=== PATIENT | male | born 1935 | race Caucasian/White ===

== ENCOUNTER 2017-11-05 14:09 | Emergency (ER) | payer MEDICARE ==
[2017-11-05] MEDS ORDERED: TETANUS/DIPHTHERIA TOXOID [ADULT] 0.5 ML VIAL IM ONE (15:28)
== END 2017-11-05 16:05 | disposition home or self-care (01) ==
LOC: EDH 14:09
DX: S51.011A Laceration without foreign body of right elbow, initial encounter (principal); I10 Essential (primary) hypertension; E78.5 Hyperlipidemia, unspecified; Z98.890 Other specified postprocedural states; X58.XXXA Exposure to other specified factors, initial encounter; Y93.89 Activity, other specified; Y92.096 Garden or yard of other non-institutional residence as the place of occurrence of the external cause; Y99.8 Other external cause status
CPT/HCPCS: 12031; 73080; 90471; 90714

== ENCOUNTER 2017-11-13 16:51 | Emergency (ER) | payer MEDICARE ==
[2017-11-13] MEDS ORDERED: OXYMETAZOLINE HCL SPRAY 15 ML BOTTLE ONE (18:09)
== END 2017-11-13 18:42 | disposition home or self-care (01) ==
LOC: EDH 16:51
DX: S00.33XA Contusion of nose, initial encounter (principal); R04.0 Epistaxis; E78.5 Hyperlipidemia, unspecified; I10 Essential (primary) hypertension; W22.8XXA Striking against or struck by other objects, initial encounter; Y93.89 Activity, other specified; Y92.89 Other specified places as the place of occurrence of the external cause; Y99.8 Other external cause status
CPT/HCPCS: 70160

== ENCOUNTER → 2017-12-28 | Outpatient (CLI) | payer MEDICARE | END | disposition home or self-care (01) | LOC: RAH 13:11 | PROVIDERS: ATTEND Family Medicine | DX: M25.521 Pain in right elbow (principal) | CPT/HCPCS: 73070 ==

== ENCOUNTER → 2018-04-19 | Outpatient (CLI) | payer MEDICARE | END | disposition home or self-care (01) | LOC: SHCH 12:50 | PROVIDERS: ATTEND Internal Medicine Cardiovascular Disease | DX: I65.23 Occlusion and stenosis of bilateral carotid arteries (principal); I10 Essential (primary) hypertension; E78.5 Hyperlipidemia, unspecified | CPT/HCPCS: 93880 ==

== ENCOUNTER → 2019-08-21 | Outpatient (CLI) | payer MEDICARE | END | disposition home or self-care (01) | LOC: SLP 20:04 | PROVIDERS: ATTEND Internal Medicine Cardiovascular Disease | DX: G47.33 Obstructive sleep apnea (adult) (pediatric) (principal); I10 Essential (primary) hypertension; I25.10 Atherosclerotic heart disease of native coronary artery without angina pectoris | CPT/HCPCS: 95810 ==

== ENCOUNTER → 2019-10-15 | Outpatient (CLI) | payer MEDICARE | END | disposition home or self-care (01) | LOC: SHCH 12:51 | PROVIDERS: ATTEND Internal Medicine Cardiovascular Disease | DX: I10 Essential (primary) hypertension (principal); R60.9 Edema, unspecified | CPT/HCPCS: 93306; 93970 ==

== ENCOUNTER → 2019-11-29 | Outpatient (CLI) | payer MEDICARE ==
[~2019-11-29] MED LIST: REGADENOSON 0.4 MG/5 ML PF SYG IVP SCH
== END | disposition home or self-care (01) ==
LOC: SHCH 07:45
PROVIDERS: ATTEND Internal Medicine Cardiovascular Disease
DX: I10 Essential (primary) hypertension (principal); I25.10 Atherosclerotic heart disease of native coronary artery without angina pectoris
CPT/HCPCS: 78452; 93017; 96374; A9500 ×2; J2785

== ENCOUNTER 2019-12-31 08:08 | Day surgery (SDC) | payer MEDICARE ==
[2019-12-27 13:50] LABS: BASOPHILS % (AUTO) 0.3 % (0.0-5.0); LYMPHOCYTES % (AUTO) 17.9 % (21.0-51.0); MEAN CORPUSCULAR HEMOGLOBIN 30.6 pg (27.0-33.0); MEAN CORPUSCULAR HGB CONC 31.9 g/dL (32.0-36.0); MEAN CORPUSCULAR VOLUME 95.9 fL (79-99); MONOCYTES % (AUTO) 11.6 % (3.0-13.0); PLATELET COUNT (AUTO) 162 K/uL (130-400); WHITE BLOOD COUNT (AUTO) 6.3 K/uL (4.8-10.8)
[2019-12-27 13:53] LABS: APPEARANCE,URINE Clear (CLEAR); BILIRUBIN,URINE Negative (NEGATIVE); COLOR,URINE Yellow (YELLOW); GLUCOSE, URINE (UA) Negative (NEGATIVE); KETONES,URINE Negative (NEGATIVE); LEUKOCYTE ESTERASE ,URINE Negative (NEGATIVE); NITRATE,URINE Negative (NEGATIVE); OCCULT BLOOD,URINE Negative (NEGATIVE); PH,URINE 5.5 (5.0-8.0); PROTEIN,URINE Negative (NEGATIVE)
[2019-12-27 14:07] LABS: INR 0.96 (0.85-1.15); PARTIAL THROMBOPLASTIN TIME 34.7 SEC (26.3-35.5); PROTHROMBIN TIME 10.4 SEC (9.6-11.6)
[2019-12-27 14:08] LABS: POTASSIUM 4.5 mmol/L (3.5-5.1)
[2019-12-30 11:26] VITALS: BP 163/85
[2019-12-31] VITALS (10 sets, daily range): BP systolic 129–157; BP diastolic 65–83
[~2019-12-31] VITALS: Ht 182.9 cm; Wt 110.0 kg
[2019-12-31] MEDS ORDERED: SIMV-46 PO (09:40)
[2019-12-31] MEDS ORDERED: MULT-1367 PO (09:43)
[2019-12-31] MEDS ORDERED: ASPI-556 PO (09:43)
[2019-12-31] MEDS ORDERED: METO25TA6 PO (09:43)
[2019-12-31] MEDS ORDERED: TAMS-1 PO (09:43)
[2019-12-31] MEDS ORDERED: SODIUM CHLORIDE 0.9% 1000ML 1,000 ML IV ONE (10:21)
[2019-12-31] MEDS ORDERED: IOHEXOL-350 50ML VIAL IV ONE (11:02)
[2019-12-31] MEDS ORDERED: NITROGLYCERIN 2 MG/VIAL VIAL IV ONE (11:02)
[2019-12-31] MEDS ORDERED: IOHEXOL 350 MG/ML 100ML INFUS..BTL IV ONE (11:02)
[2019-12-31] MEDS ORDERED: SODIUM BICARB 50MEQ 50ML VIAL ONE (11:02)
[2019-12-31] MEDS ORDERED: MEPERIDINE-PF 25 MG/ML SYG ONE ×2 (11:02→11:47)
[2019-12-31] MEDS ORDERED: HEPARIN SODIUM 1000UNIT/ML 10ML VIAL ONE (11:02)
[2019-12-31] MEDS ORDERED: MIDAZOLAM HCL 1 MG/ML 2ML VIAL ONE ×2 (11:03→11:47)
[2019-12-31] MEDS ORDERED: LIDOCAINE HCL 2% 20ML ONE (11:03)
[2019-12-31] MEDS ORDERED: SODIUM CHLORIDE 0.9% 1000ML 1,000 ML IV SCH (12:10)
--- NOTE | 2019-12-31 14:00 | NUR ---
Pt's spouse called and discharge instructions explained including routine and emergency care of cath site.
--- NOTE | 2019-12-31 15:10 | NUR ---
Discharge instructions provided to pt. Patient instructed in routine and emergency care of cath site. Pt reminded to leave dressing on for 24 hours, keeping it dry, clean, and intact. Pt also instructed to not lift anything over 5 lbs for 5 days. Pt verbalized understanding. Pt reports no further questions at this time.
--- NOTE | 2019-12-31 16:35 | NUR ---
Pt discharged home, and family member picked him up at exit, tolerating solids/liquids, ambulating well. Denies any dizziness, nausea, or pain. Site to right groin remains soft and non-tender, dressing dry, clean and intact. Pt reminded to leave the dressing dry, clean, and intact for 24 hours and not to lift anything over 5 lbs for 5 days.
== END 2019-12-31 16:35 | disposition home or self-care (01) ==
LOC: DAH 08:08
PROVIDERS: ATTEND Internal Medicine Cardiovascular Disease
DX: I25.10 Atherosclerotic heart disease of native coronary artery without angina pectoris (principal); I10 Essential (primary) hypertension; E78.5 Hyperlipidemia, unspecified; G47.33 Obstructive sleep apnea (adult) (pediatric); Z79.82 Long term (current) use of aspirin; Z79.899 Other long term (current) drug therapy; Z98.890 Other specified postprocedural states; Z79.01 Long term (current) use of anticoagulants
CPT/HCPCS: 36415; 71045; 80048; 81003; 85025; 85610; 85730; 93005; 93459; A4215; A4216; A4221; A4222; A4223 ×3; A4606; A4663; C1760; C1894; J1644; J2175 ×2; J2250 ×2; J3490 ×3; J7030; Q9965; Q9967 ×2; 99156; 99157

== ENCOUNTER 2021-06-04 06:44 | Day surgery (SDC) | payer MEDICARE ==
[2021-06-02 15:26] LABS: BASOPHILS % (AUTO) 0.4 % (0.0-5.0); EOSINOPHILS % (AUTO) 4.1 % (0.0-8.0); HEMATOCRIT 47.7 % (42-54); LYMPHOCYTES % (AUTO) 18.7 % (21.0-51.0); MEAN CORPUSCULAR HGB CONC 32.1 g/dL (32.0-36.0); MEAN CORPUSCULAR VOLUME 96.6 fL (79-99); MONOCYTES % (AUTO) 11.1 % (3.0-13.0); NEUTROPHILS % (AUTO) 65.3 % (40.0-77.0); PLATELET COUNT (AUTO) 152 K/uL (130-400); RED BLOOD CELL COUNT(AUTO) 4.94 MIL/uL (4.50-6.20); RED CELL DISTRIBUTION WIDTH 13.2 % (11.0-15.5); WHITE BLOOD COUNT (AUTO) 5.4 K/uL (4.8-10.8)
[2021-06-02 15:39] LABS: POTASSIUM 4.5 mmol/L (3.5-5.1)
[2021-06-02 15:42] LABS: INR 1.03 (0.85-1.15); PROTHROMBIN TIME 11.2 SEC (9.6-11.6)
[2021-06-02 15:43] LABS: PARTIAL THROMBOPLASTIN TIME 32.1 SEC (26.3-35.5)
[2021-06-03 11:57] VITALS: BP 169/89
[2021-06-04] VITALS (11 sets, daily range): BP systolic 111–159; BP diastolic 68–90
[~2021-06-04] VITALS: Ht 182.9 cm; Wt 108.5 kg
[~2021-06-04 06:44] MED LIST changes: +ASPI-556 PO; +METO25TA6 PO; +MULT-1367 PO; -REGADENOSON 0.4 MG/5 ML PF SYG IVP SCH; +SIMV-46 PO; +TAMS-1 PO
[2021-06-04] MEDS ORDERED: CEFAZOLIN SODIUM 1 GM VIAL ONE (07:57)
[2021-06-04] MEDS ORDERED: BUPIVACAINE/PF 0.25% 30ML VIAL IJ ONE (07:57)
[2021-06-04] MEDS ORDERED: MIDAZOLAM HCL 1 MG/ML 2ML VIAL ONE ×4 (07:58→09:56)
[2021-06-04] MEDS ORDERED: MEPERIDINE-PF 25 MG/ML SYG ONE ×4 (07:58→09:57)
[2021-06-04] MEDS ORDERED: LIDOCAINE HCL 1% MDV 50ML VIAL ONE (07:58)
[2021-06-04] MEDS ORDERED: IODIXANOL 320 MG/ML 100 ML VIAL ONE (07:58)
[2021-06-04] MEDS ORDERED: 0.9%NACL 1000ML 1,000 ML IV SCH (08:00)
[2021-06-04] MEDS ORDERED: CEFAZOLIN SODIUM 1 GM VIAL IVP SCH (16:00)
== END 2021-06-04 17:00 | disposition home or self-care (01) ==
LOC: DAH 06:44
PROVIDERS: ATTEND Internal Medicine Cardiovascular Disease
DX: I45.10 Unspecified right bundle-branch block (principal); I49.5 Sick sinus syndrome; I44.0 Atrioventricular block, first degree; I49.1 Atrial premature depolarization; I25.5 Ischemic cardiomyopathy; I49.3 Ventricular premature depolarization; I25.10 Atherosclerotic heart disease of native coronary artery without angina pectoris; G47.33 Obstructive sleep apnea (adult) (pediatric); Z79.01 Long term (current) use of anticoagulants; Z79.82 Long term (current) use of aspirin; Z79.899 Other long term (current) drug therapy
CPT/HCPCS: 33208; 33225; 36415; 71045; 80048; 85025; 85610; 85730; 93005; A4215; A4216; A4221; A4222; A4223 ×3; A4606; A4663; C1769 ×3; C1894; C1898 ×2; C1900; C2621; J0690 ×2; J2175 ×4; J2250 ×4; J3490 ×2; J7030; Q9967; 99156; 99157

== ENCOUNTER 2021-06-25 19:04 | Emergency (ER) | payer MEDICARE ==
[~2021-06-25] VITALS: Ht 185.4 cm; Wt 108.0 kg
[2021-06-25] MEDS ORDERED: ONDANSETRON 4MG INJ IVP ONE (19:30)
[2021-06-25] MEDS ORDERED: KETOROLAC 15MG/ML VIAL (15MG/ML) IV ONE (19:30)
[2021-06-25 19:35] LABS: BASOPHILS % (AUTO) 0.2 % (0.0-5.0); EOSINOPHILS % (AUTO) 1.5 % (0.0-8.0); HEMATOCRIT 46.4 % (42-54); LYMPHOCYTES % (AUTO) 5.7 % (21.0-51.0); MEAN CORPUSCULAR HEMOGLOBIN 30.9 pg (27.0-33.0); MEAN CORPUSCULAR HGB CONC 32.5 g/dL (32.0-36.0); MEAN CORPUSCULAR VOLUME 94.9 fL (79-99); MONOCYTES % (AUTO) 8.4 % (3.0-13.0); PLATELET COUNT (AUTO) 166 K/uL (130-400); RED BLOOD CELL COUNT(AUTO) 4.89 MIL/uL (4.50-6.20); RED CELL DISTRIBUTION WIDTH 13.1 % (11.0-15.5); WHITE BLOOD COUNT (AUTO) 9.8 K/uL (4.8-10.8)
[2021-06-25] MEDS ORDERED: KETOROLAC 30MG VIAL (30MG/ML) ONE (19:36)
[2021-06-25 19:38] LABS: APPEARANCE,URINE Clear (CLEAR); BILIRUBIN,URINE Negative (NEGATIVE); COLOR,URINE Yellow (YELLOW); GLUCOSE, URINE (UA) Negative (NEGATIVE); KETONES,URINE Negative (NEGATIVE); LEUKOCYTE ESTERASE ,URINE Negative (NEGATIVE); NITRATE,URINE Negative (NEGATIVE); OCCULT BLOOD,URINE Negative (NEGATIVE); PROTEIN,URINE Negative (NEGATIVE); UROBILINOGEN,URINE 0.2 mg/dL (0.2-1.0)
[2021-06-25 19:49] LABS: CREATININE 1.3 mg/dL (0.5-1.5); POTASSIUM 3.7 mmol/L (3.5-5.1)
[2021-06-25 19:53] LABS: BILIRUBIN,TOTAL 1.1 mg/dL (0.2-1.0); TOTAL PROTEIN, SERUM 7.4 g/dL (6.0-8.3)
[2021-06-25] MEDS ORDERED: 0.9%NACL 1000ML 1,000 ML IV ONE (20:00)
[2021-06-25] MEDS ORDERED: IOHEXOL-350 75 ML VIAL IV ONE (20:03)
[2021-06-25] MEDS ORDERED: TAMSULOSIN HCL 0.4 MG CAP.ER.24H PO SCH (21:00)
[2021-06-25 22:03] VITALS: BP 158/80
== END 2021-06-25 22:05 | disposition home or self-care (01) ==
LOC: EDH 19:04
DX: R33.9 Retention of urine, unspecified (principal); R11.2 Nausea with vomiting, unspecified; E78.00 Pure hypercholesterolemia, unspecified; I10 Essential (primary) hypertension; Z79.1 Long term (current) use of non-steroidal anti-inflammatories (NSAID); Z79.82 Long term (current) use of aspirin; Z79.899 Other long term (current) drug therapy; Z95.0 Presence of cardiac pacemaker
CPT/HCPCS: 36415; 74177; 80053; 81003; 83690; 84484; 85025; 93005; 96361; 96374; 96375; 99285; J1885; J2405; J7030; Q9967

== ENCOUNTER → 2021-06-30 | Outpatient (CLI) | payer MEDICARE ==
[2021-06-30 14:08] LABS: CREATININE 2.3 mg/dL (0.5-1.5); POTASSIUM 4.3 mmol/L (3.5-5.1)
[2021-06-30 14:12] LABS: BASOPHILS % (AUTO) 0.2 % (0.0-5.0); EOSINOPHILS % (AUTO) 1.5 % (0.0-8.0); HEMATOCRIT 43.5 % (42-54); LYMPHOCYTES % (AUTO) 8.4 % (21.0-51.0); MEAN CORPUSCULAR HEMOGLOBIN 30.1 pg (27.0-33.0); MEAN CORPUSCULAR HGB CONC 31.7 g/dL (32.0-36.0); MONOCYTES % (AUTO) 12.6 % (3.0-13.0); NEUTROPHILS % (AUTO) 76.9 % (40.0-77.0); PLATELET COUNT (AUTO) 161 K/uL (130-400); RED BLOOD CELL COUNT(AUTO) 4.58 MIL/uL (4.50-6.20); RED CELL DISTRIBUTION WIDTH 12.9 % (11.0-15.5); WHITE BLOOD COUNT (AUTO) 8.2 K/uL (4.8-10.8)
== END | disposition home or self-care (01) ==
LOC: LAB 13:38
PROVIDERS: ATTEND Urology
DX: R33.8 Other retention of urine (principal)
CPT/HCPCS: 36415; 80048; 85025

== ENCOUNTER → 2021-07-08 | Outpatient (CLI) | payer MEDICARE ==
[~2021-07-08] MED LIST changes: +IOHEXOL-350 75 ML VIAL IV ONE
== END | disposition home or self-care (01) ==
LOC: RAH 07:47
PROVIDERS: ATTEND Urology
DX: K80.20 Calculus of gallbladder without cholecystitis without obstruction (principal); K76.0 Fatty (change of) liver, not elsewhere classified; K44.9 Diaphragmatic hernia without obstruction or gangrene; R16.0 Hepatomegaly, not elsewhere classified; K57.30 Diverticulosis of large intestine without perforation or abscess without bleeding; N40.1 Benign prostatic hyperplasia with lower urinary tract symptoms; I70.8 Atherosclerosis of other arteries; K40.20 Bilateral inguinal hernia, without obstruction or gangrene, not specified as recurrent; N32.89 Other specified disorders of bladder; R33.8 Other retention of urine
CPT/HCPCS: 74178; Q9967

== ENCOUNTER 2021-07-14 06:08 | Day surgery (SDC) | payer MEDICARE ==
[2021-07-13 09:22] LABS: BASOPHILS % (AUTO) 0.5 % (0.0-5.0); EOSINOPHILS % (AUTO) 5.2 % (0.0-8.0); HEMATOCRIT 44.5 % (42-54); LYMPHOCYTES % (AUTO) 14.5 % (21.0-51.0); MEAN CORPUSCULAR HEMOGLOBIN 30.2 pg (27.0-33.0); MEAN CORPUSCULAR HGB CONC 32.1 g/dL (32.0-36.0); MEAN CORPUSCULAR VOLUME 94.1 fL (79-99); MONOCYTES % (AUTO) 9.8 % (3.0-13.0); NEUTROPHILS % (AUTO) 69.5 % (40.0-77.0); PLATELET COUNT (AUTO) 161 K/uL (130-400); RED BLOOD CELL COUNT(AUTO) 4.73 MIL/uL (4.50-6.20); RED CELL DISTRIBUTION WIDTH 12.6 % (11.0-15.5); WHITE BLOOD COUNT (AUTO) 6.6 K/uL (4.8-10.8)
[2021-07-13 09:28] LABS: POTASSIUM 4.2 mmol/L (3.5-5.1)
[2021-07-13 09:32] LABS: INR 1.09 (0.85-1.15); PROTHROMBIN TIME 11.8 SEC (9.6-11.6)
[2021-07-13 09:34] LABS: PARTIAL THROMBOPLASTIN TIME 32.2 SEC (26.3-35.5)
[~2021-07-14] VITALS: Ht 185.4 cm; Wt 105.9 kg
[2021-07-14] VITALS (9 sets, daily range): BP systolic 106–140; BP diastolic 51–88
[~2021-07-14 06:08] MED LIST changes: -IOHEXOL-350 75 ML VIAL IV ONE
[2021-07-14] MEDS ORDERED: 0.9%NACL 1000ML 1,000 ML IV ONE (06:19)
[2021-07-14] MEDS ORDERED: CEFAZOLIN SODIUM 1 GM VIAL ONE (07:08)
[2021-07-14] MEDS ORDERED: BUPIVACAINE/PF 0.25% 30ML VIAL IJ ONE (07:08)
[2021-07-14] MEDS ORDERED: LIDOCAINE HCL 1% MDV 50ML VIAL ONE (07:09)
[2021-07-14] MEDS ORDERED: MIDAZOLAM HCL 1 MG/ML 2ML VIAL ONE ×3 (07:29→09:58)
[2021-07-14] MEDS ORDERED: IODIXANOL 320 MG/ML 100 ML VIAL ONE (07:29)
[2021-07-14] MEDS ORDERED: MEPERIDINE-PF 25 MG/ML SYG ONE ×3 (07:29→09:58)
[2021-07-14] MEDS ORDERED: TRAM50TA4 PO (11:16)
[2021-07-14] MEDS ORDERED: DOXY100C5 PO (11:16)
[2021-07-14] MEDS ORDERED: ACET325C6 PO (11:26)
[2021-07-14] MEDS ORDERED: ACETAMINOPHEN WITH CODEINE 1 TAB TAB PO PRN (11:30)
== END 2021-07-14 14:30 | disposition home or self-care (01) ==
LOC: DAH 06:08
PROVIDERS: ATTEND Internal Medicine Cardiovascular Disease
DX: T82.190A Other mechanical complication of cardiac electrode, initial encounter (principal); I50.22 Chronic systolic (congestive) heart failure; Z95.1 Presence of aortocoronary bypass graft; Y82.8 Other medical devices associated with adverse incidents; Z79.899 Other long term (current) drug therapy
CPT/HCPCS: 33215; 33224; 33234; 36415; 71045; 80048; 85025; 85610; 85730; 93005; A4215; A4216; A4221; A4222; A4223 ×3; A4606; A4663; C1769 ×2; C1900; J0690; J2175 ×3; J2250 ×3; J3490 ×2; J7030; Q9967; 99156; 99157

== ENCOUNTER 2022-05-06 11:12 | Emergency (ER) | payer MEDICARE ==
[~2022-05-06] VITALS: Ht 185.4 cm; Wt 108.0 kg
[~2022-05-06 11:12] MED LIST changes: +DOXY100C5 PO; +TRAM50TA4 PO
[2022-05-06 12:03] LABS: BASOPHILS % (AUTO) 0.2 % (0.0-5.0); EOSINOPHILS % (AUTO) 0.4 % (0.0-8.0); HEMATOCRIT 40.2 % (42-54); LYMPHOCYTES % (AUTO) 8.4 % (21.0-51.0); MEAN CORPUSCULAR HEMOGLOBIN 30.8 pg (27.0-33.0); MEAN CORPUSCULAR HGB CONC 33.1 g/dL (32.0-36.0); MEAN CORPUSCULAR VOLUME 93.1 fL (79-99); MONOCYTES % (AUTO) 16.4 % (3.0-13.0); NEUTROPHILS % (AUTO) 74.2 % (40.0-77.0); PLATELET COUNT (AUTO) 111 K/uL (130-400); RED BLOOD CELL COUNT(AUTO) 4.32 MIL/uL (4.50-6.20); RED CELL DISTRIBUTION WIDTH 13.7 % (11.0-15.5); WHITE BLOOD COUNT (AUTO) 5.4 K/uL (4.8-10.8)
[2022-05-06 12:24] LABS: CREATININE 1.2 mg/dL (0.5-1.5); POTASSIUM 3.9 mmol/L (3.5-5.1)
[2022-05-06 12:26] LABS: ALBUMIN 3.3 g/dL (3.5-5.0)
[2022-05-06] MEDS: 0.9%NACL 1000ML 1,000 ML IV ONE (12:45)
[2022-05-06] MEDS: OSELTAMIVIR PHOSPHATE 75 MG CAP ONE (12:49)
[2022-05-06] MEDS: OSELTAMIVIR PHOSPHATE 75 MG CAP PO SCH (13:00)
[2022-05-06 14:16] VITALS: BP 138/89
[2022-05-06] MEDS ORDERED: CEPH500B PO (15:46)
== END 2022-05-06 15:59 | disposition home or self-care (01) ==
LOC: EDH 11:12
DX: S80.211A Abrasion, right knee, initial encounter (principal); R42 Dizziness and giddiness; Z20.822 Contact with and (suspected) exposure to COVID-19; E78.00 Pure hypercholesterolemia, unspecified; I10 Essential (primary) hypertension; Z79.82 Long term (current) use of aspirin; W18.39XA Other fall on same level, initial encounter; Y93.89 Activity, other specified; Y92.89 Other specified places as the place of occurrence of the external cause; Y99.8 Other external cause status
CPT/HCPCS: 99284; 87635; 80053; 85025; 87804 ×2; 36415; 93005; C9803

== ENCOUNTER → 2022-08-20 | Outpatient (CLI) | payer MEDICARE ==
[~2022-08-20] MED LIST changes: +CEPH500B PO
== END | disposition home or self-care (01) ==
LOC: SHCH 08:43
PROVIDERS: ATTEND Internal Medicine Cardiovascular Disease
DX: I65.21 Occlusion and stenosis of right carotid artery (principal); Z98.890 Other specified postprocedural states
CPT/HCPCS: 93880

== ENCOUNTER → 2023-07-14 | Outpatient (CLI) | payer MEDICARE ==
[~2023-07-14] MED LIST changes: +REGADENOSON 0.4 MG/5 ML PF SYG IVP ONE
== END | disposition home or self-care (01) ==
LOC: SHCH 08:44
PROVIDERS: ATTEND Internal Medicine Cardiovascular Disease
DX: I25.10 Atherosclerotic heart disease of native coronary artery without angina pectoris (principal)
CPT/HCPCS: 78452; 96374; 93017; J2785; A9500 ×2

== ENCOUNTER → 2023-08-14 | Outpatient (CLI) | payer MEDICARE ==
[~2023-08-14] MED LIST changes: -REGADENOSON 0.4 MG/5 ML PF SYG IVP ONE
== END | disposition home or self-care (01) ==
LOC: SHCH 10:11
PROVIDERS: ATTEND Internal Medicine Cardiovascular Disease
DX: I34.81 Nonrheumatic mitral (valve) annulus calcification (principal); R07.9 Chest pain, unspecified; I10 Essential (primary) hypertension; E78.5 Hyperlipidemia, unspecified
CPT/HCPCS: 93306

== ENCOUNTER 2023-10-31 07:02 | Day surgery (SDC) | payer MEDICARE ==
[2023-10-27 13:55] LABS: BASOPHILS # (AUTO) 0.03 K/uL (0.00-0.20); BASOPHILS % (AUTO) 0.4 % (0.0-5.0); EOSINOPHILS # (AUTO) 0.22 K/uL (0.00-0.70); EOSINOPHILS % (AUTO) 3.3 % (0.0-8.0); HEMATOCRIT 49.8 % (42-54); IMMATURE GRANULOCYTE ABSOLUTE 0.02 K/uL (0-1); LYMPHOCYTES % (AUTO) 14.9 % (21.0-51.0); MEAN CORPUSCULAR HEMOGLOBIN 31.3 pg (27.0-33.0); MEAN CORPUSCULAR HGB CONC 32.3 g/dL (32.0-36.0); MEAN CORPUSCULAR VOLUME 96.9 fL (79-99); MONOCYTES # (AUTO) 0.7 K/uL (0.1-1.0); MONOCYTES % (AUTO) 9.9 % (3.0-13.0); NEUTROPHILS # (AUTO) 4.8 K/uL (1.8-7.7); NEUTROPHILS % (AUTO) 71.2 % (40.0-77.0); PLATELET COUNT (AUTO) 147 K/uL (130-400); RED BLOOD CELL COUNT(AUTO) 5.14 MIL/uL (4.50-6.20); RED CELL DISTRIBUTION WIDTH 13.2 % (11.0-15.5); WHITE BLOOD COUNT (AUTO) 6.8 K/uL (4.8-10.8)
[2023-10-27 14:01] LABS: POTASSIUM 4.6 mmol/L (3.5-5.1)
[2023-10-27 14:14] LABS: INR 0.96 (0.85-1.15); PROTHROMBIN TIME 11.4 SEC (9.6-11.6)
[2023-10-27 14:15] LABS: B-TYPE NATRIURETIC PEPTIDE 183 pg/mL (0-100)
[2023-10-27 14:16] LABS: PARTIAL THROMBOPLASTIN TIME 31.5 SEC (26.3-35.5)
[2023-10-27 14:30] VITALS: BP 153/88; PULSE 91; RESP 15
[2023-10-27 14:37] LABS: ADD UA MICROSCOPIC YES; APPEARANCE,URINE CLEAR (CLEAR); BILIRUBIN,URINE NEGATIVE (NEGATIVE); COLOR,URINE YELLOW (YELLOW); GLUCOSE, URINE (UA) NEGATIVE (NEGATIVE); KETONES,URINE NEGATIVE (NEGATIVE); LEUKOCYTE ESTERASE ,URINE NEGATIVE Leu/uL (NEGATIVE); NITRATE,URINE NEGATIVE (NEGATIVE); OCCULT BLOOD,URINE NEGATIVE (NEGATIVE); PROTEIN,URINE 20 mg/dL (NEGATIVE); UROBILINOGEN,URINE 0.2 mg/dL (0.2-1.0)
[2023-10-27 14:40] LABS: MUCUS,URINE RARE LPF (None Seen); RBC,URINE 0-1 /HPF (0-1); SQUAMOUS EPITHELIAL CELL,UR RARE /HPF (0-2); WBC,URINE 0-1 /HPF (0-1)
[~2023-10-31] VITALS: Ht 182.9 cm; Wt 112.4 kg
[2023-10-31] VITALS (11 sets, daily range): BP systolic 112–166; BP diastolic 66–88; PULSE 60–91; RESP 12–20
[~2023-10-31 07:02] MED LIST changes: -CEPH500B PO; -DOXY100C5 PO; -TRAM50TA4 PO
[2023-10-31] MEDS: 0.9%NACL 1000ML 1,000 ML IV ONE (07:41)
[2023-10-31] MEDS ORDERED: LIDOCAINE HCL 400MG/20ML VIAL ONE (08:32)
[2023-10-31] MEDS ORDERED: MEPERIDINE-PF 25 MG/ML SYG ONE (08:32)
[2023-10-31] MEDS ORDERED: SODIUM BICARB 50MEQ 50ML VIAL 50 ML ONE (08:32)
[2023-10-31] MEDS ORDERED: NICARDIPINE 25MG INJ IV ONE (08:33)
[2023-10-31] MEDS ORDERED: IOHEXOL 350 MG/ML 100ML INFUS..BTL IV ONE (08:33)
[2023-10-31] MEDS ORDERED: HEPARIN 10,000 UNIT/10ML (1,000 UNIT/ML) VIAL ONE (08:33)
[2023-10-31] MEDS ORDERED: NITROGLYCERIN 50MG VIAL ONE (08:33)
[2023-10-31] MEDS ORDERED: IOHEXOL-350 50ML VIAL IV ONE (08:33)
[2023-10-31] MEDS ORDERED: MIDAZOLAM HCL 1 MG/ML 2ML VIAL ONE (08:33)
[2023-10-31] MEDS ORDERED: CLOPIDOGREL 300MG TAB ONE (10:01)
[2023-10-31] MEDS ORDERED: ASPIRIN 325MG EC TAB PO ONE (10:01)
[2023-10-31] MEDS ORDERED: 0.9%NACL 1000ML 1,000 ML IV SCH (10:30)
== END 2023-10-31 16:15 | disposition home or self-care (01) ==
LOC: DAH 07:02
PROVIDERS: ATTEND Internal Medicine Cardiovascular Disease
DX: I25.119 Atherosclerotic heart disease of native coronary artery with unspecified angina pectoris (principal); I25.729 Atherosclerosis of autologous artery coronary artery bypass graft(s) with unspecified angina pectoris; I25.82 Chronic total occlusion of coronary artery; I11.0 Hypertensive heart disease with heart failure; I50.42 Chronic combined systolic (congestive) and diastolic (congestive) heart failure; I25.5 Ischemic cardiomyopathy; I49.5 Sick sinus syndrome; I44.1 Atrioventricular block, second degree; E78.5 Hyperlipidemia, unspecified; G47.33 Obstructive sleep apnea (adult) (pediatric); I45.2 Bifascicular block; I25.2 Old myocardial infarction; Z98.890 Other specified postprocedural states; Z98.49 Cataract extraction status, unspecified eye; Z95.1 Presence of aortocoronary bypass graft; Z79.82 Long term (current) use of aspirin; Z79.01 Long term (current) use of anticoagulants; Z72.89 Other problems related to lifestyle; Z95.5 Presence of coronary angioplasty implant and graft; Z79.899 Other long term (current) drug therapy
CPT/HCPCS: 80048; 83880; 85025; 85610; 85730; 81001; 36415; 71045; 93005; 85347 ×2; 93459; C9600 ×2; C1769; C1894 ×2; C1874 ×3; C1760; C1887; J3490 ×3; J7030; J1644 ×2; J2250; J2175; Q9967; A4215; A4222; A4221; A4663; A4216; A4606; C9601; Q9965 ×2; A4223 ×3; 96360; 96361; 99156; 99157

== ENCOUNTER 2023-11-07 15:40 | Emergency (ER) | payer MEDICARE ==
[~2023-11-07] VITALS: Ht 182.9 cm; Wt 112.5 kg
[2023-11-07 16:07] VITALS: BP 156/72; PULSE 75; RESP 18; O2SAT 98
[2023-11-07 16:24] LABS: BASOPHILS # (AUTO) 0.02 K/uL (0.00-0.20); BASOPHILS % (AUTO) 0.3 % (0.0-5.0); EOSINOPHILS % (AUTO) 2.8 % (0.0-8.0); HEMATOCRIT 40.8 % (42-54); IMMATURE GRANULOCYTE ABSOLUTE 0.03 K/uL (0-1); LYMPHOCYTES # (AUTO) 0.8 K/uL (1.0-4.8); LYMPHOCYTES % (AUTO) 11.7 % (21.0-51.0); MEAN CORPUSCULAR HEMOGLOBIN 31.3 pg (27.0-33.0); MEAN CORPUSCULAR HGB CONC 33.1 g/dL (32.0-36.0); MEAN CORPUSCULAR VOLUME 94.7 fL (79-99); MONOCYTES # (AUTO) 0.8 K/uL (0.1-1.0); MONOCYTES % (AUTO) 10.5 % (3.0-13.0); NEUTROPHILS # (AUTO) 5.3 K/uL (1.8-7.7); NEUTROPHILS % (AUTO) 74.3 % (40.0-77.0); PLATELET COUNT (AUTO) 175 K/uL (130-400); RED BLOOD CELL COUNT(AUTO) 4.31 MIL/uL (4.50-6.20); RED CELL DISTRIBUTION WIDTH 13.5 % (11.0-15.5); WHITE BLOOD COUNT (AUTO) 7.1 K/uL (4.8-10.8)
[2023-11-07 16:40] LABS: INR <= 0.93 (0.85-1.15); POTASSIUM 3.9 mmol/L (3.5-5.1); PROTHROMBIN TIME 10.9 SEC (9.6-11.6)
[2023-11-07 16:41] LABS: PARTIAL THROMBOPLASTIN TIME 30.8 SEC (26.3-35.5)
[2023-11-07 16:45] LABS: ALBUMIN 3.4 g/dL (3.5-5.0); BILIRUBIN,TOTAL 1.5 mg/dL (0.2-1.0); TOTAL PROTEIN, SERUM 6.6 g/dL (6.0-8.3)
== END 2023-11-07 17:44 | disposition home or self-care (01) ==
LOC: EDH 15:40
DX: S70.11XA Contusion of right thigh, initial encounter (principal); I10 Essential (primary) hypertension; R22.41 Localized swelling, mass and lump, right lower limb; E78.00 Pure hypercholesterolemia, unspecified; Z79.82 Long term (current) use of aspirin; Z79.84 Long term (current) use of oral hypoglycemic drugs; Z79.899 Other long term (current) drug therapy; X58.XXXA Exposure to other specified factors, initial encounter; Y93.89 Activity, other specified; Y92.89 Other specified places as the place of occurrence of the external cause; Y99.8 Other external cause status
CPT/HCPCS: 36415; 80053; 85025; 85610; 85730; 93971

== ENCOUNTER → 2024-01-29 | Outpatient (CLI) | payer MEDICARE | END | disposition home or self-care (01) | LOC: SHCH 14:18 | PROVIDERS: ATTEND Internal Medicine Cardiovascular Disease | DX: I08.3 Combined rheumatic disorders of mitral, aortic and tricuspid valves (principal); I50.22 Chronic systolic (congestive) heart failure | CPT/HCPCS: 93306 ==

== ENCOUNTER → 2024-09-19 | Outpatient (CLI) | payer MEDICARE ==
[~2024-09-19] MED LIST changes: -ASPI-556 PO; +CLOP75TA32 PO; +FURO20TA4 PO; -MULT-1367 PO
== END | disposition home or self-care (01) ==
LOC: SHCH 13:36
PROVIDERS: ATTEND Internal Medicine Cardiovascular Disease
DX: I25.5 Ischemic cardiomyopathy (principal); Z95.0 Presence of cardiac pacemaker
CPT/HCPCS: 93306